=== PATIENT | male | born 1970 | race Caucasian/White ===

== ENCOUNTER 2020-09-19 12:14 | Emergency (ER) | payer OTHER, SELFPAY ==
--- NOTE | ~2020-09-19 | XR_ITS ---
EXAMINATION: XR chest 1V portable INDICATION: Shortness of breath, COVID 19 positive TECHNIQUE: Portable AP chest at 1230 hours COMPARISON: None available FINDINGS: There are airspace opacities of the lung bases and right midlung zone. No pleural effusion or pneumothorax is identified. The cardiomediastinal silhouette is normal. The visualized osseous str uctures are unremarkable. IMPRESSION: 1. Airspace opacities of the lung bases and right midlung zone, likely COVID 19 pneumonia given patie nt's clinical history. Reviewed, dictated and finalized at location B. IMPRESSION: 1. Airspace opacities of the lung bases and right midlung zone, likely COVID 19 pneumonia given patient's clinical history.
[2020-09-19 12:17] VITALS: BP 116/72; PULSE 73; RESP 25; TEMP 36.9; O2SAT 97
[2020-09-19 12:22] VITALS: PULSE 74
--- NOTE | 2020-09-19 12:23 | ECG_ITS ---
Measurements Intervals [place] Rate: 74 P: 55 NC: 139 QRS: -11 QRSD: 98 T: 38 QT: 345 QTc: 385 Interpretive Statements SINUS RHYTHM LEFT ATRIAL ENLARGEMENT INCOMPLETE RIGHT BUNDLE BRANCH BLOCK BASELINE ARTIFACT- I, II, III, AVL, AVF BORDERLINE ECG Electronically Signed On 09-19-2020 13:30:57 CDT by Dallin Milian D.O.
--- NOTE | 2020-09-19 12:36 | ED.SOB ---
HPI - SOB/Dyspnea General Chief Complaint: Weakness Stated Complaint: WEAKNESS,COVID+ Time Seen by Provider: 09/19/20 12:28 History of Present Illness HPI Narrative: 50 yo male presents to the ED c/o covid-19. He symptoms started about 10 days ago and he tested positive the following day. He has been seen twice at other EDs and discharged, but he is not feeling any better. He reports fatigue, weakness, loss of appetite. He has not filled any of his prescriptions from other visits. Related Data Allergies Allergy/AdvReac Type Severity Reaction Status Date / Time No Known Allergies Allergy Verified 09/19/20 12:37 Review of Systems Review of Systems: All systems reviewed & are unremarkable except as noted in HPI and below Constitutional: Constitutional: Denies fever(s) Cardiovascular: Cardiovascular: Reports chest pain Respiratory: Respiratory: Reports dyspnea Gastrointestinal: Gastrointestinal: Denies diarrhea, Reports nausea and Denies vomiting Genitourinary: Genitourinary: Denies dysuria Musculoskeletal: Musculoskeletal: Reports myalgias Neurologic: Reports dizziness, Reports headache(s) and Reports weakness [facility] Social History Social History (Updated 09/19/20 @ 13:51 by Zackary Bryant MD) Substance use: never Exam Const: General: no acute distress and alert Orientation/consciousness: patient oriented x3 HENMT: Head: normal to inspection Resp: Effort & Inspection: normal respiratory effort Auscultation: crackles bilateral at the base Cardio: Rate: regular rate Rhythm: regular rhythm GI: Inspection: non-distended GI Palp: Yes Soft to palpation and No Tenderness to palpation present (GI) Skin: General skin exam: normal color Neuro: General: patient oriented x3, moves all extremities and no focal motor deficits Speech: normal speech Extrem: General: normal to inspection Course Vital Signs Vital signs: Vital Signs Temperature 36.9 C 09/19/20 12:17 Pulse Rate 73 09/19/20 12:17 Respiratory Rate 25 H 09/19/20 12:17 Blood Pressure 116/72 09/19/20 12:17 Pulse Oximetry 97 09/19/20 12:17 Temperature 36.9 C 09/19/20 12:17 Pulse Rate 73 09/19/20 15:00 Respiratory Rate 18 09/19/20 15:00 Blood Pressure 103/62 09/19/20 15:00 Pulse Oximetry 97 09/19/20 15:00 MDM - SOB/Dyspnea MDM Narrative Medical decision making narrative: Mild infiltrates. Vitals stable. Labs unremarkable. Ambulatory and tolerating PO. Medical Records Attestation: I reviewed the patient's medical records. Lab Data Attestation: I reviewed the patient's lab results. Result diagrams: 09/19/20 12:27 09/19/20 12:27 Labs: Lab Results 09/19/20 09/19/20 09/19/20 Range/Units 12:27 12: 12:27 WBC 4.8 (4.5-10.0) K/mm3 RBC 4.47 L (4.6-6.20) M/mm3 Hgb 14.2 (14.0-18.0) g/dL Hct 40.2 L (42.0-52.0) % MCV 89.9 (80-100) fl MCH 31.8 (26-34) pg MCHC 35.3 (32-36) g/dl RDW 12.1 (11.5-14.5) % Plt Count 136 L (150-375) k/mm3 MPV 10.7 H (7.4-10.4) fl Immature Gran % (Auto) 0.4 (0-0.5) % Neut % (Auto) 73.7 H (45.5-73.1) % Lymph % (Auto) 19.9 (18.3-44.2) % Bacon % (Auto) 5.6 (2.6-8.5) % Eos % (Auto) 0.0 (0-4.4) % Baso % (Auto) 0.4 (0.2-1.2) % Lymph # (Auto) 0.96 (0.9-3.2) K/mm3 Bacon # (Auto) 0.3 (0.1-0.6) K/mm3 Eos # (Auto) 0.0 (0-0.3) K/mm3 Baso # (Auto) 0.0 (0.0-0.1) K/mm3 Abs Immat Gran (auto) 0.02 (0.00-0.031) K/mm3 Absolute Neuts (auto) 3.6 (1.3-6.7) K/mm3 Absolute Nucleated RBC 0.0 (0.0-0.012) K/mm3 Nucleated RBC % 0.0 (0.0-0.2) % % Immature Plt Fraction 4.7 (0.9-11.2) % Sodium 134 L (137-145) mmol/L Potassium 3.4 (3.4-5.0) mmol/L Chloride 97 L (98-107) mmol/L Carbon Dioxide 29 (22-30) mmol/L Anion Gap 8 (8-16) mmol/L BUN 18 (9-20) mg/dL Creatinine 1.10 (0.7-1.3) mg/dL Estim Creat Clear Calc 59 ml/m
[2020-09-19 12:42] LABS: Basophils Percent Auto 0.4 % (0.2-1.2); Hematocrit 40.2 % (42.0-52.0); Hemoglobin 14.2 g/dL (14.0-18.0); Immature Granulocyte Absolute 0.02 K/mm3 (0.00-0.031); Immature Granulocyte Percent A 0.4 % (0-0.5); Immature Platelet Fraction Pct 4.7 % (0.9-11.2); Lymphocytes Absolute Auto 0.96 K/mm3 (0.9-3.2); Lymphocytes Percent Auto 19.9 % (18.3-44.2); Mean Corpuscular HGB Conc 35.3 g/dl (32-36); Mean Corpuscular Hemoglobin 31.8 pg (26-34); Mean Corpuscular Volume 89.9 fl (80-100); Mean Platelet Volume 10.7 fl (7.4-10.4); Monocytes Absolute Auto 0.3 K/mm3 (0.1-0.6); Monocytes Percent Auto 5.6 % (2.6-8.5); Neutrophils Absolute Auto 3.6 K/mm3 (1.3-6.7); Neutrophils Percent Auto 73.7 % (45.5-73.1); Platelet Count Result 136 k/mm3 (150-375); Red Blood Count 4.47 M/mm3 (4.6-6.20); Red Cell Distribution Width 12.1 % (11.5-14.5); White Blood Count 4.8 K/mm3 (4.5-10.0)
[2020-09-19 12:49] LABS: Alanine Aminotransferase 26 U/L (4-50); Albumin Level 3.7 g/dL (3.5-5.1); Alkaline Phosphatase 75 U/L (38-126); Anion Gap 8 mmol/L (8-16); Aspartate Amino Transferase 38 U/L (17-59); Bilirubin,Total 0.5 mg/dL (0.2-1.3); Blood Urea Nitrogen 18 mg/dL (9-20); Calcium 8.5 mg/dL (8.4-10.2); Carbon Dioxide 29 mmol/L (22-30); Chloride 97 mmol/L (98-107); Estimated CRCL calculation 59 ml/min; Estimated Glomerular Filt Rate > 60; Glucose 101 mg/dL (65-110); Potassium 3.4 mmol/L (3.4-5.0); Sodium 134 mmol/L (137-145)
[2020-09-19] MEDS: DEXTROSE 5%/0.45% SOD CHL 1,000 ML 1000 ML IV CONT (12:49)
[2020-09-19] MEDS: ONDANSETRON INJ 4 MG/2 ML VIAL IV PUSH (12:50)
[2020-09-19 12:51] LABS: Lactic Acid Reflex 1.2 mmol/L (0.7-2.1)
[2020-09-19 12:55] VITALS: BP 106/63; PULSE 92; RESP 18; O2SAT 99
--- NOTE | 2020-09-19 12:56 | PC.NURSE ---
Patient asked for urine at this time, patient unable to urinate and declines straight cath.
[2020-09-19 13:47] LABS: Add Urine Microscopic? YES; Appearance Urine Clear (Clear); Bacteria Urine Trace /hpf; Bilirubin Urine Negative (Negative); Blood Urine 3+ (Negative); Color Urine Yellow (Yellow); Glucose Urine UA 1+ mg/dL (Negative); Ketones Urine Trace mg/dL (Negative); Leukocyte Esterase Ur Negative LEU/UL (Negative); Mucus Urine Rare /lpf; Nitrate Urine Negative (Negative); Protein Urine 3+ mg/dL (Negative); RBC Urine 0-2 /hpf (0-2); Specific Grav Ur 1.026 (1.001-1.035); Urobilinogen Urine Negative mg/dL (<2.0); WBC Urine 0-3 /hpf
[2020-09-19 15:00] VITALS: BP 103/62; PULSE 73; RESP 18; O2SAT 97
--- NOTE | 2020-09-19 15:33 | PC.NURSE ---
patient walked to bathroom without difficulty and in no distress
== END 2020-09-19 16:15 | disposition home or self-care (01) ==
PROVIDERS: Emergency Medicine; Emergency Provider Emergency Medicine
DX: U07.1 COVID-19 (principal); I45.10 Unspecified right bundle-branch block; R94.31 Abnormal electrocardiogram [ECG] [EKG]; R91.8 Other nonspecific abnormal finding of lung field
CPT/HCPCS: 36415; 71045; 80053; 81001; 83605; 85025; 85055; 93005; 96361; 96374; 99284; J2405